=== PATIENT | female | born 1985 | race Caucasian/White ===

== ENCOUNTER 2016-11-20 09:37 | Emergency (ER) | payer MEDICARE | END 2016-11-20 11:30 | disposition home or self-care (01) | LOC: D.ER 09:37 | DX: S80.01XA Contusion of right knee, initial encounter (principal); S00.03XA Contusion of scalp, initial encounter; W07.XXXA Fall from chair, initial encounter; Y93.89 Activity, other specified; Y92.019 Unspecified place in single-family (private) house as the place of occurrence of the external cause; K21.9 Gastro-esophageal reflux disease without esophagitis; G40.909 Epilepsy, unspecified, not intractable, without status epilepticus; Z87.820 Personal history of traumatic brain injury ==

== ENCOUNTER 2017-11-27 17:28 | Emergency (ER) | payer MEDICARE ==
[~2017-11-27] VITALS: Ht 162.6 cm; Wt 101.8 kg
[2017-11-27 18:23] VITALS: Ht 162.6 cm; Wt 101.8 kg
[2017-11-27] MEDS ORDERED: TEGRETOL200 MG PO (18:25)
[2017-11-27] MEDS ORDERED: NEURONTIN600 MG PO (18:26)
[2017-11-27 21:47] VITALS: BP 128/83
== END 2017-11-27 21:48 | disposition home or self-care (01) ==
LOC: D.ER 17:28
DX: S69.92XA Unspecified injury of left wrist, hand and finger(s), initial encounter (principal); W18.31XA Fall on same level due to stepping on an object, initial encounter; Y93.89 Activity, other specified; Y92.129 Unspecified place in nursing home as the place of occurrence of the external cause; S50.02XA Contusion of left elbow, initial encounter; F17.200 Nicotine dependence, unspecified, uncomplicated

== ENCOUNTER 2018-03-30 17:20 | Emergency (ER) | payer MEDICARE ==
[~2018-03-30] VITALS: Ht 162.6 cm; Wt 98.2 kg
[~2018-03-30 17:20] MED LIST: NEURONTIN600 MG PO; TEGRETOL200 MG PO
[2018-03-30 17:24] VITALS: Ht 162.6 cm; Wt 98.2 kg
[2018-03-30 19:11] VITALS: BP 132/75
== END 2018-03-30 19:10 | disposition home or self-care (01) ==
LOC: D.ER 17:20
DX: M54.2 Cervicalgia (principal); M25.511 Pain in right shoulder; G40.909 Epilepsy, unspecified, not intractable, without status epilepticus; F17.200 Nicotine dependence, unspecified, uncomplicated; W18.30XA Fall on same level, unspecified, initial encounter; Y93.89 Activity, other specified; Y92.129 Unspecified place in nursing home as the place of occurrence of the external cause

== ENCOUNTER → 2020-01-13 09:30 | Outpatient (CLI) | payer MEDICARE ==
[2018-03-30 17:24] VITALS: BMI 37.1
== END | disposition home or self-care (01) ==
LOC: D.MRI 09:30
PROVIDERS: ATTEND Student in an Organized Health Care Education/Training Program
DX: R19.00 Intra-abdominal and pelvic swelling, mass and lump, unspecified site (principal)

== ENCOUNTER → 2020-02-10 19:32 | Outpatient (CLI) | payer MEDICARE ==
[2018-03-30 17:24] VITALS: BMI 37.1
[~2020-02-10 19:32] MED LIST changes: +CARBATROL 200200 MG; +CARBATROL300 MG; +CLARITIN 10 MG10 MG PO; +CRANBERRY PO; +CYCLOBENZAPRINE5 MG; +LYRICA25 MG; +MELATONIN 3 MG1 TAB PO; +MOBIC7.5 MG; +MOBIC7.5 MG PO; +NEXIUM20 MG PO; +NORCO 7.5-3251 EACH; +VOLTAREN100 GM; +ZOFRAN4 MG
== END | disposition home or self-care (01) ==
LOC: D.LABREF 19:32
PROVIDERS: ATTEND Student in an Organized Health Care Education/Training Program
DX: Z11.59 Encounter for screening for other viral diseases (principal)

== ENCOUNTER 2020-02-11 05:28 | Day surgery (SDC) | payer MEDICARE ==
[2020-02-09 13:38] LABS: BASOPHILS 0.2 % (0-2); EOSINOPHILS 1.2 % (0-7); HEMATOCRIT 47.7 % (36.0-48.0); HEMOGLOBIN 15.5 g/dL (12-16); IMMATURE GRANULOCYTES 0.1 % (0-5); MCH 30.5 pg (26.0-34.0); MCHC 32.5 g/dL (31.0-37.0); MCV 93.7 fL (80.0-100.0); MEAN PLATELET VOLUME 10.6 fL (7.4-10.4); MONOCYTES 8.5 % (2-11); RBC 5.09 10x6/uL (4.00-5.40); RDW 13.8 % (11.5-14.5); WBC 9.2 10x3/uL (4.8-10.8)
[2020-02-09 13:51] LABS: PLATELET COUNT 413 10x3/uL (130-400)
[~2020-02-11] VITALS: Ht 162.6 cm; Wt 98.4 kg
--- NOTE | ~2020-02-11 | OP ---
PATIENT NAME: NESTOR NEWSOME MEDICAL RECORD: [id number] :81 LOCATION:[facility] ADMISSION DATE: SURGEON: BHAVIK MILLER DO DATE OF OPERATION: 02/11/2020 PREOPERATIVE DIAGNOSIS: Abnormal uterine bleeding. POSTOPERATIVE DIAGNOSIS: Abnormal uterine bleeding. PRIMARY SURGEON: Bhavik Miller DO ANESTHESIA: General ET tube. PROCEDURE: Hysteroscopy, dilation and curettage. FINDINGS: Normal appearing external genitalia, normal appearing vaginal vault, normal appearing cervix. Uterus sounded to 7 cm. Normal appearing uterine cavity. Bilateral fallopian tube ostia with proliferative endometrium. SPECIMENS: Endometrial curettings. ESTIMATED BLOOD LOSS: 5 cc. IV FLUIDS: 500 cc. URINE OUTPUT: 200 cc. COMPLICATIONS: None. CONDITION: Stable. DESCRIPTION OF PROCEDURE: The risks, benefits, alternatives and indications of the procedure were discussed with the patient. She voiced understanding of the procedure and signed the consent. She was taken to the OR where general anesthesia was administered and found to be adequate. She was placed in the dorsal lithotomy position. She was prepped and draped in the normal sterile fashion. A speculum was placed in the posterior aspect of the vagina. Single tooth tenaculum was used to grasp the anterior lip of the cervix. The uterus was sounded to 7 cm. The cervix was further dilated to accommodate the hysteroscope. Hysteroscope was inserted into the uterine cavity and the uterine cavity did appear to be normal with proliferative endometrium with normal appearing bilateral fallopian tube ostia. The hysteroscope was removed from the uterus and the cervix was further dilated to accommodate a curette. A gentle sharp curettage was performed and endometrial curettings were sent to pathology. All instruments were removed from the vagina and the tenaculum site was noted to be hemostatic. All lap, sponge, and instrument counts were correct times 2. The patient tolerated the procedure well and she was taken to recovery room in stable condition. TRANSINT:[id number] Voice Confirmation ID: [id number] DOCUMENT ID: [id number] OPERATIVE REPORT [id number] NESTOR NEWSOME BHAVIK MILLER DO CC: [id number] DICTATION DATE: 02/11/20 0755 ELECTRICAL SUBCONTRACTOR: 02/11/20 09[id number] [place] [id number]
[~2020-02-11 05:28] MED LIST changes: -CLARITIN 10 MG10 MG PO; -CRANBERRY PO; -MELATONIN 3 MG1 TAB PO; -MOBIC7.5 MG PO; -NEXIUM20 MG PO; -VOLTAREN100 GM
[2020-02-11 06:21] VITALS: Ht 162.6 cm; Wt 98.4 kg
--- NOTE | 2020-02-11 06:29 | NUR ---
Dr Barajas notified and reviewed pt's behavior and assessment results. Pt is a low risk per Dr Jensen. Dr Barajas stated to give resources at time of discharge. No further orders at this time. Reviewed resources with Pt and she verbalized understanding.
[2020-02-11 06:35] LABS: HCG URINE NEGATIVE (NEGATIVE)
[2020-02-11] MEDS ORDERED: CRANBERRY PO (08:32)
[2020-02-11] MEDS ORDERED: NEXIUM20 MG PO (08:34)
[2020-02-11] MEDS ORDERED: CLARITIN 10 MG10 MG PO (08:35)
[2020-02-11] MEDS ORDERED: MELATONIN 3 MG1 TAB PO (08:36)
[2020-02-11] MEDS ORDERED: MOBIC7.5 MG PO (08:38)
[2020-02-11] MEDS ORDERED: VOLTAREN100 GM (08:39)
--- NOTE | 2020-02-11 08:59 | NUR ---
0859 LUKAS CAMEJO, PT'S RIDE NOTIFIED OF PT'S RETURN TO ROOM AND TIME OF SCHEDULED DISCHARGE.
--- NOTE | 2020-02-11 10:28 | NUR ---
1025 PT'S RIDE IS HERE, RELEASED IN WC.
== END 2020-02-11 10:25 | disposition home or self-care (01) ==
LOC: D.OPS 05:28 → D.PAN 07:00 → D.OPS 10:25
PROVIDERS: ATTEND Student in an Organized Health Care Education/Training Program
DX: N93.9 Abnormal uterine and vaginal bleeding, unspecified (principal)

== ENCOUNTER → 2020-03-17 12:17 | Outpatient (CLI) | payer MEDICARE ==
[2020-02-11 06:21] VITALS: BMI 37.3
[~2020-03-17 12:17] MED LIST changes: +CLARITIN 10 MG10 MG PO; +CRANBERRY PO; +MELATONIN 3 MG1 TAB PO; +MOBIC7.5 MG PO; +NEXIUM20 MG PO; +VOLTAREN100 GM
== END | disposition home or self-care (01) ==
LOC: D.NM 12:17
PROVIDERS: ATTEND Internal Medicine Geriatric Medicine
DX: R10.11 Right upper quadrant pain (principal)

== ENCOUNTER → 2020-08-07 15:40 | Outpatient (CLI) | payer MEDICARE ==
[2020-02-11 06:21] VITALS: BMI 37.3
[2020-08-07 16:38] LABS: BILIRUBIN NEGATIVE (NEGATIVE); KETONE NEGATIVE (NEGATIVE); NITRITE NEGATIVE (NEGATIVE); UROBILINOGEN NORMAL mg/dL (< 2)
[2020-08-07 16:39] LABS: BACTERIA MODERATE HPF (NONE SEEN); SQUAMOUS EPITHELIAL 0-5 HPF (0-4); WHITE CELLS - URINE 0-5 HPF (0-4)
== END | disposition home or self-care (01) ==
LOC: D.LABREF 15:40
PROVIDERS: ATTEND Legal Medicine
DX: R82.79 Other abnormal findings on microbiological examination of urine (principal)

== ENCOUNTER → 2020-08-11 14:11 | Outpatient (CLI) | payer MEDICARE ==
[2020-02-11 06:21] VITALS: BMI 37.3
== END | disposition home or self-care (01) ==
LOC: D.CT 14:11
PROVIDERS: ATTEND Legal Medicine
DX: R10.9 Unspecified abdominal pain (principal)

== ENCOUNTER → 2020-09-15 08:25 | Outpatient (CLI) | payer MEDICARE ==
[2020-02-11 06:21] VITALS: BMI 37.3
== END | disposition home or self-care (01) ==
LOC: D.MRI 09-07 08:00
PROVIDERS: ATTEND Legal Medicine
DX: R93.5 Abnormal findings on diagnostic imaging of other abdominal regions, including retroperitoneum (principal)